=== PATIENT | male | born 1970 | race Caucasian/White ===

== ENCOUNTER 2023-01-17 07:54 | Outpatient (REF) | payer OTHER, SELFPAY ==
[2023-01-17 08:31] LABS: MANUAL DIFF FLAG NO
[2023-01-17 08:54] LABS: Basophils Percent Auto 0.7 % (0-2); Eosinophils Absolute Auto 0.4 X10*3/uL (0.0-0.4); Eosinophils Percent Auto 5.8 % (0-4); Hematocrit 50.6 % (42.0-52.0); Hemoglobin 17.7 g/dl (14.0-18.0); Imm Gran Abs Auto 0.01 X10*3/uL (0.00-0.03); Imm Gran Pct Auto 0.2 % (0.0-0.4); Lymphocytes Absolute Auto 1.9 X10*3/uL (1.2-4.9); Lymphocytes Percent Auto 31.6 % (20-40); Mean Corpuscular Hemoglobin 31.6 pg (27.0-33.0); Mean Corpuscular Volume 90.2 fL (80.0-98.0); Mean Platelet Volume 9.7 fL (9.4-12.4); Monocytes Absolute Auto 0.6 X10*3/uL (0.1-1.2); Monocytes Percent Auto 9.3 % (2-11); Neutrophils Absolute Auto 3.2 x10*3/uL (2.0-8.3); Neutrophils Percent Auto 52.4 % (45-73); Platelet Count 233 X10*3/uL (160-400); Red Blood Count 5.61 X10*6/uL (4.60-5.80); Red Cell Distribution Width 11.8 % (11.0-16.0); White Blood Count 6.1 X10*3/uL (4.8-10.8)
[2023-01-17 09:28] LABS: Alanine Aminotransferase 31 U/L (0-40); Albumin Level 4.6 g/dL (3.5-5.0); Alkaline Phosphatase 61 U/L (39-117); Anion Gap 16 (12-20); Aspartate Amino Transferase 25 U/L (5-37); Bilirubin Total 0.6 mg/dL (0.0-1.0); Blood Urea Nitrogen 12 mg/dL (9-16); Calcium 9.4 mg/dL (8.4-10.2); Carbon Dioxide 24 mmol/L (22-29); Chloride 104 mmol/L (96-108); Cholesterol 210 mg/dL (<200); Estimated Glomerular Filt Rate > 60; Glucose Random 103 mg/dL (60-115); HDL Cholesterol 44 mg/dL (>40); LDL Cholesterol Calculated 117 mg/dL (<100); Potassium 4.1 mmol/L (3.3-5.1); Sodium 140 mmol/L (135-145); Total Protein 7.5 g/dL (6.5-8.0); Triglycerides 245 mg/dL (<150)
[2023-01-17 09:38] LABS: Erythrocyte Sedimentation Rate 1 MM/HR (0-15)
[2023-01-17 09:52] LABS: PSA,Total (Free>4and<10) 0.81 ng/mL (0.00-4.00)
== END 2023-01-17 07:55 | disposition home or self-care (01) ==
LOC: HO.LAB 07:54
PROVIDERS: PCP Internal Medicine Medical Oncology; Visit Provider Internal Medicine Medical Oncology
DX: N40.0 Benign prostatic hyperplasia without lower urinary tract symptoms (principal); E66.3 Overweight; M79.605 Pain in left leg; Z12.5 Encounter for screening for malignant neoplasm of prostate
CPT/HCPCS: 36415; 80053; 80061; 84153; 85025; 85652

== ENCOUNTER 2023-08-05 09:11 | Outpatient (REF) | payer OTHER, SELFPAY ==
[2023-08-05 09:34] LABS: MANUAL DIFF FLAG NO
[2023-08-05 10:53] LABS: Basophils Percent Auto 0.5 % (0-2); Eosinophils Absolute Auto 0.3 X10*3/uL (0.0-0.4); Eosinophils Percent Auto 5.8 % (0-4); Hematocrit 50.3 % (42.0-52.0); Hemoglobin 17.2 g/dl (14.0-18.0); Imm Gran Abs Auto 0.02 X10*3/uL (0.00-0.03); Imm Gran Pct Auto 0.4 % (0.0-0.4); Lymphocytes Absolute Auto 1.9 X10*3/uL (1.2-4.9); Mean Corpuscular HGB Conc 34.2 g/dl (31.0-36.0); Mean Corpuscular Hemoglobin 30.8 pg (27.0-33.0); Mean Corpuscular Volume 90.1 fL (80.0-98.0); Mean Platelet Volume 9.3 fL (9.4-12.4); Monocytes Absolute Auto 0.6 X10*3/uL (0.1-1.2); Neutrophils Absolute Auto 2.8 x10*3/uL (2.0-8.3); Neutrophils Percent Auto 49.3 % (45-73); Platelet Count 223 X10*3/uL (160-400); Red Blood Count 5.58 X10*6/uL (4.60-5.80); Red Cell Distribution Width 11.5 % (11.0-16.0); White Blood Count 5.7 X10*3/uL (4.8-10.8)
[2023-08-05 11:16] LABS: Alanine Aminotransferase 28 U/L (0-40); Albumin Level 4.4 g/dL (3.5-5.0); Alkaline Phosphatase 54 U/L (39-117); Anion Gap 15 (12-20); Aspartate Amino Transferase 22 U/L (5-37); Bilirubin Total 1.1 mg/dL (0.0-1.0); Blood Urea Nitrogen 12 mg/dL (9-16); Calcium 9.8 mg/dL (8.4-10.2); Carbon Dioxide 27 mmol/L (22-29); Chloride 102 mmol/L (96-108); Estimated Glomerular Filt Rate > 60; Glucose Random 101 mg/dL (60-115); Potassium 3.8 mmol/L (3.3-5.1); Sodium 140 mmol/L (135-145); Total Protein 7.2 g/dL (6.5-8.0)
== END 2023-08-05 09:12 | disposition home or self-care (01) ==
LOC: HO.LAB 09:11
PROVIDERS: PCP Internal Medicine Medical Oncology; Visit Provider Internal Medicine Medical Oncology
DX: E66.3 Overweight (principal)
CPT/HCPCS: 36415; 80053; 85025

== ENCOUNTER 2024-12-13 16:45 | Outpatient (REF) | payer OTHER, SELFPAY ==
--- OUTSIDE RECORDS SUMMARY | 2023-11-02 14:00 | XMS_ITS ---
Author Organization Marcin Gillette III, MD Address [address] [place] [address] [place] [address] Care Team Providers Care Software Engineer Web Services Name Role Phone Marcin Gillette Primary Care Provider [phone] Allergies Allergen (clinical drug ingredient) Drug/Non Drug Allergy documented on EMR Reaction Allergy Type Onset Date Status sulfamethoxazole / trimethoprim Bactrim DS harlan shahriar syndrome Drug Allergy Active REASON FOR VISIT Follow up Medications Medication SIG (Take, Route, Frequency, Duration) Notes Start Date End Date Status Terbinafine HCl 1 % 1 application Playground Supervisor ally Once a day 09/30/2023 Active Triamcinolone Acetonide 0.1 % APPLY TOPICALLY TO THE AFFECTED AREA TWICE DAILY Active traZODone HCl 50 MG 1 tablet at bedtime as needed Orally Once a day 05/20/2023 Active Social History Tobacco Use: Social History Observation Description Date Details (start date - stop date) Light tobacco s moker NA - NA Sex Assigned At : Social History Observation Description Sex Assigned At Male Tobacco Use/Smoking Question Answer Notes Patient is a light tobacco smoker Additional Findings: Tobacco User Light cigarett e smoker ((1-9 cigs/day) Encounters Encounter Location Date Provider Diagnosis Marcin Gillette III, MD [address] [place] [address] [place] [address] 11/02/2023 Marcin Gillette Essential hypertensi on I10 Assessments Encounter Date Diagnosis (ICD Code) Assessment Notes Treat ment Notes Treatment Clinical Notes 11/02/2023 Essential hypertension (ICD-10 - I10) His systolic blood pressure was elevated at 150/80. This is llikely due too his ethanol use. He will return to the [facility] in the near future to measure it again. If necessary, will be treated. Plan Of Treatment Medication Medication Name Sig Start Date Stop Date Notes Terbinafine HCl 1 % 1 application Playground Supervisor ally Once a day 09/30/2023 Triamcinolone Acetonide 0.1 % APPLY TOPI MARCY TO THE AFFECTED AREA TWICE DAILY traZODone HCl 50 MG 1 tablet at bedtime as needed Orally Once a day 05/20/2023 Next Appt Details Provider Name:Marcin Gillette, 12/16/2024 01:00:00 PM, [address] [place] [address] [address], [place], [address], Provider Name:Marcin Gillette, 01/09/2025 02:30:00 PM, [address] [place] [address] [address], [place], [address], Progress Notes * Mg KHANDOB:1970 (54 yo M)Acc No.[id number]:11/02/2023 Progress Notes Patient: Mg SUAREZ Provider: Arsenio Gillette MD :1970 A ge:53 Y S ex:Male Date:11/02/2023 Address:[address] [place] [id number] Subjective: * Chief Complaints: * 1 . Follow up. * HPI: C OVID-19 Screening: Questions H ave you had any new onset fever, chills, cough, congestion, sore throat, shortness of breath, muscle aches? N o H ave you been exposed to the virus within the last 10 days? N o H ave you travelled internationally in the last 10 days? N o H ave you been exposed to COVID-19 in the past? N o * ROS: G eneral/Constitutional: pain o nly normal aches and pains. C hills d enies.?Fatigue a dmits. F ever d enies. E NT: Decreased hearing d enies. R espiratory: Cough d enies. C ardiovascular: Chest pain with exertion d enies. D yspnea on exertion?denies. S hortness of breath d enies. G astrointestinal: Constipation d enies. D ecreased appetite d enies.?Diarrhea d enies. H eartburn d enies. N ausea d enies. R ectal bleeding?denies. V omiting d enies. H ematology: bruising d enies. p etechiae d enies. S wollen glands n one have been noted. G enitourinary: Frequent urination d enies. M usculoskeletal: Muscle aches d enies. P ainful joints d enies. S ciatica d enies. W eakness d enies. S kin: Itching d enies. R elinor d enies. S kin lesion(s)?denies. N eurologic: Difficulty speaking d enies. D izziness d enies.?Headache d enies. L ow back pain d enies. P sychiatric: Depressed mood d enies. 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 2013, Overweight, Alcohol use disorder, Tobacco dependence. * Surgical History: a ppendectomy 1983, nasal surgery childhood, tooth extraction , Right hand growth removal 08/2023. * Hospitalization/Major Diagno stic Procedure: E R visit C4-C5 12/12/17. * Family History: F ather: 54 yrs. M other: alive 78 yrs. A maternal uncle at the age of 55 of a myocardial infarction. * Social History: T obacco Use: T obacco Use/Smoking P atmarcelino is a l ight tobacco smoker A dditional Findings: Tobacco User L ight cigarette smoker ((1-9 cigs/day) H e operates a [employer]. He drinks alcohol daily. 2014. His girlfriend was . He smokes cigarettes. * Medications: T aking Triamcinolone Acetonide 0.1 % Cream APPLY TOPICALLY TO THE AFFECTED AREA TWICE DAILY , Taking traZODone HCl 50 MG Tablet 1 tablet at bedtime as needed Orally Once a day , Taking Terbinafine HCl 1 % Cream 1 application Externally Once a day , stop date 04/26/2024, Medication List reviewed and reconciled with the patient * Allergies: B actrim DS: harlan shahriar syndrome. Objective: * Vitals: * Examination: G eneral Examination: GENERAL APPEARANCE: p salome, well nourished, well developed, in no acute distress, calm and relaxed. HEAD: a traumatic, normocephalic. EYES: e bridget, perrla, anicteric, conjugate. EARS: n ormal. NOSE: s eptum intact. ORAL CAVITY: n ormal, unremarkable. NECK/THYROID: n o jugular venous distention, no carotid bruit, thyroid normal. LYMPH NODES: n o enlarged lymph nodes,spleen normal. SKIN: n o suspicious lesions, anicteric. HEART: n o clicks, gallops, murmurs, or rubs, regular rhythm, S1, S2 normal, no s3, or vascular bruits. LUNGS: c lear to auscultation . BREASTS: no masses palpable bilaterally. ABDOMEN: b owel sounds normal, no ascites, no organomegaly, no mass. RECTAL EXAM: n ot examined. MUSCULOSKELETAL: e xtremities unremarkable, no clubbing, cyanosis or edema. PERIPHERAL PULSES: n ormal. NEUROLOGIC: a lert and oriented, cranial nerves 2-12 grossly intact, deep tendon reflexes 2+ symmetrical, motor strength normal upper and lower extremities, sensory exam intact. PSYCH: a lert, oriented. Assessment: * Assessment: 1. E ssential hypertension - I10 N otes :His systolic blood pressure was elevated at 150/80. This is llikely due too his ethanol use. He will return to the offic in the near future to measure it again. If necessary, will be treated. Plan: * Treatment: 2. O thers Continue Triamcinolone Acetonide Cream, 0.1 %, APPLY TOPICALLY TO THE AFFECTED AREA TWICE DAILY;?Continue traZODone HCl Tablet, 50 MG, 1 tablet at bedtime as needed, Orally, Once a day. ? * Images: * The named appointment provid er may or may not be the originator of this progress note, and it is not deemed complete until electronically signed by the appointment provider. Sign off status: Pending * Provider: Arsenio Gillette MD Date: 0 11/02/2023 Generated for Printi ng/Faaraselig/eTransmitting on: 0 12/13/2024 05:50 PM EDT History and Physical Notes * HPI (History of Present Illness) Category Sub-Category Detail Notes COVID-19 Screening Questions Have you had any new onset fever, chills, cough, congestion, sore throat, shortness of breath, muscle aches?: No Have you been exposed to the virus withi n the last 10 days?: No Have you travelled internationally in [facility] last 10 days?: No Have you been exposed to COVID-19 in the past?: No Examination Category Sub-Category Detail Notes General Examination GENERAL APPEARANCE: pleasant , well nourished, well developed, in no acute distress, calm and relaxed HEAD: atraumatic, normocep halic EYES: eomi, perrla, anicte kenzie, conjugate EARS: normal NOSE: septum intact NECK/THYROID: no jugular venous di stention, no carotid bruit, thyroid normal HEART: no clicks, gallops, murmurs, or rubs, regular rhythm, S1, S2 normal, no s3, or vascular bruits LUNGS: clear to auscultatio n ABDOMEN: bowel sounds normal, no ascites, no organomegaly, no mass NEUROLOGIC: alert and oriented, cranial nerves 2-12 grossly intact, deep tendon reflexes 2+ symmetrical, motor strength normal upper and lower extremities, sensory exam intact SKIN: no suspicious lesion s, anicteric PERIPHERAL PULSES: normal BREASTS: no masses palpable b ilaterally MUSCULOSKELETAL: extremities unremark able, no clubbing, cyanosis or edema LYMPH NODES: no enlarged lymph no luba,spleen normal RECTAL EXAM: not examined PSYCH: alert, oriented ORAL CAVITY: normal, unremarkable
[2024-12-13 17:01] LABS: Appearance Urine Clear; Glucose Urine UA Negative (Negative); PH 6.5 (5.0-9.0); Specific Gravity - Urine 1.025 (1.005-1.025)
--- OUTSIDE RECORDS SUMMARY | 2024-12-13 17:50 | XMS_ITS | Clinical Summary ---
Author Organization [facility] it Address [address] [place] [address] Care Team Providers Care Rubber Tile Floor Layer Name Role Phone Unavailable Primary Care Provider Unavailabl e Social History Tobacco Use Types Packs/Day Years Used Date Smoking Tobacco: Never Assessed Sex and Gender Information Value Date Recorded Sex Assigned at Not on file Legal Sex Male 10:00 AM EST Gender Identity Not on file Sexual Orientation Not on file Plan of Treatment Health Maintenance Due Date Last Done Comments DTaP,Tdap,and Td Vaccines (1 - Tdap) 09/20/1991 Hepatitis B Vaccines (1 of 3 - 19+ 3-dose series) 09/20/1991 Pneumococcal Vaccine: 50+ Ye ars (1 of 1 - PCV) 2022 Zoster Vaccines (1 of 2) 2022 Cholesterol Screening (Lipid Panel) 12/21/2023 Colorectal Cancer Screening: Colonoscopy 12/21/2023 HIV Screening 12/21/2023 Hepatitis C Screening 12/21/2023 Social Influencers of Health Screening 12/21/2023 COVID-19 Vaccine (1 - 2023-2 5 season) 2023 Depression Screening 04/27/2024 Influenza Vaccine (#1) 2024 HIB Vaccines Aged Out No longer eligi ble based on patient's age to complete this topic HPV Vaccines Aged Out No longer eligi ble based on patient's age to complete this topic Hepatitis A Vaccines Aged Out No long er eligible based on patient's age to complete this topic IPV Vaccines Aged Out No longer eligi ble based on patient's age to complete this topic MMR Vaccines Aged Out No longer eligi ble based on patient's age to complete this topic Meningococcal ACWY Vaccine Aged Out N o longer eligible based on patient's age to complete this topic Meningococcal B Vaccine Aged Out No l onger eligible based on patient's age to complete this topic RSV Immunization Patients Un nolberto 20 months Aged Out No longer eligible b ased on patient's age to complete this topic Varicella Vaccines Aged Out No longer eligible based on patient's age to complete this topic
--- OUTSIDE RECORDS SUMMARY | 2024-12-13 17:50 | XMS_ITS | Patient Health Record ---
Author Organization [facility] Address [address] [place] [address] Care Team Providers Care Facing Cutting Machine Operator Name Role Phone Marcin Gillette MD Primary Care Provider Unavailab Marcin Baig Unavailable [phone] Allergies Allergen (clinical drug ingredient) Drug/Non Drug Allergy documented on EMR Reaction Allergy Type Onset Date Status sulfamethoxazole / trimethoprim Bactrim DS Unknown Drug Allergy Active Reason For Referral No Information Medications Medication SIG (Take, Route, Fr equency, Duration) Notes Start Date End Date Status Gilman 3 1000 MG 1 capsule Orally Once a day Active Immunizations Vaccine Route Administration Date Status Comme nts Influenza Unknown 07/27/2018 Refused Social History Tobacco Use: Social History Observation Description Date Details (start date - stop date) Never Smoker NA - NA Tobacco Use/Smoking Question Answer Notes Patient is a nonsmoker Alcohol Screen Question Answer Notes Did you have a drink contain ing alcohol in the past year? Yes How often did you have a dri nk containing alcohol in the past year? 4 or more times a week (4 points) How many drinks did you have on a typical day when you were drinking in the past year? 1 or 2 drinks (0 point) How often did you have 6 or more drinks on one occasion in the past year? Less than monthly (1 point) Points 5 Interpretation Positive Section Notes: Smoker; substance abuse and EtOH as above Smoker; Alcohol abuse-2-3 N ips and a couple of beers daily; substance abuse-absinent since 2012 Problems Problem Type SNOMED Code ICD Code Onset Dates Problem Status W/U Status Risk Notes Problem [id number] Rectal discomfort (K62.89) Active confirmed Plan Of Treatment Pending Test Test Name Order Date LIVER PROFILE 02/21/2014 CBC w DIFF 02/21/2014 PROTHROMBIN TIME (PT, INR) 02/21/2014 HEPATITIS C VIRAL LOAD 02/21/2014 HEPATITIS C GENOTYPE 02/21/2014 Future Test Test Name Order Date COLONOSCOPY 07/27/2018 Insurance Providers Payer Name Payer Address Payer Phone Subscriber Number Group Number Insured Name Patient Relationship to Insured Coverage Start Date Coverage End Date [facility] [address] [place], [place] [id number] HAWA KHAN Self - patient is the insured Medical (General) History Medical History History ICD Code Denies [place],DM,CVA,Lung disease,renal dise ase Chronic Hep C diagnosed in 2 012 at [facility]--IV heroin-abstinent since 05/2013--Hepatitis C viral load was nondetectable in 2013 EtOH abuse --stopped in his 30's Surgical History Surgery Date(Month/Year) Broken nose 1983 Adenoidectomy
--- OUTSIDE RECORDS SUMMARY | 2024-12-13 17:50 | XMS_ITS | Clinical Summary ---
Demographics Address [address] [place] [address] Mobile Phone Home Phone Preferred Language Maltese Marital Status Unknown Hindu Affiliation Unknown Race Unknown Ethnic Group Unknown Author Organization [facility] Address [address] [place] [address] Care Team Providers Care Joggle Press Operator Name Role Phone Unavailable Primary Care Provider Unavailabl e Allergies Active Allergy Reactions Criticality Noted Date Comments Sulfamethoxazole W-Trimethoprim Urticarial Rash 07/30/2015 Medications * This document contains information received from the source organization and may not represent a complete record from that organization. No known medications Active Problems No known active problems Social History Tobacco Use Types Packs/Day Years Used Date Smoking Tobacco: Never Alcohol Use Standard Drinks/Week Comments Not Asked 0 (1 standard drink = 0.6 oz pur e alcohol) Sex and Gender Information Value Date Recorded Sex Assigned at Not on file Legal Sex Male 2:55 PM EDT Gender Identity Not on file Sexual Orientation Not on file Last Filed Vital Signs Vital Sign Reading Time Taken Comments Blood Pressure 130/90 07/30/2015 11:04 AM EDT Pulse 74 07/30/2015 11:04 AM EDT Temperature - - Respiratory Rate - - Oxygen Saturation - - Inhaled Oxygen Concentration - - Weight 90.7 kg (200 lb) 07/30/2015 11:04 AM EDT Height 180.3 cm (5' 11 ) 07/30/2015 11:04 AM EDT Body Mass Index 27.89 07/30/2015 11:04 AM EDT Plan of Treatment Health Maintenance Due Date Last Done Comments Hepatitis C Screening 1970 DTaP/Tdap/Td (1 - Tdap) 1990 Hep B (1 of 3 - 19+ 3-dose series) 09/20/1991 Pneumococcal 50+ years (1 of 1 - PCV) 2022 Zoster (Shingrix) (1 of 2) 2022 COVID-19 Vaccine ( - 2023-2 5 season) 2023 Influenza (#1) 2024 HPV Vaccine (No Doses Required) Completed Hep A Aged Out No longer eligi ble based on patient's age to complete this topic Hib Aged Out No longer eligi ble based on patient's age to complete this topic Meningococcal ACWY Aged Out No longer eligible based on patient's age to complete this topic
== END 2024-12-13 16:46 | disposition home or self-care (01) ==
LOC: HO.LNP 16:45
PROVIDERS: Visit Provider Internal Medicine Medical Oncology
DX: R39.9 Unspecified symptoms and signs involving the genitourinary system (principal)
CPT/HCPCS: 81003

== ENCOUNTER 2024-12-16 13:41 | Emergency (ER) | payer OTHER, SELFPAY ==
--- NOTE | ~2024-12-16 | US_ITS ---
EXAMINATION: US TRIPLEX LOWER EXTREMITY, RIGHT CLINICAL INFORMATION: Right lower extremity pain COMPARISON: None available. TECHNIQUE: Color-flow triplex imaging with spectral analysis and compression Doppler were performed on the right lower extremity. FINDINGS: Respiratory variation, normal compression and augmented flow are noted throughout the right lower extremity. The visualized common femoral vein, superficial femoral vein, profunda femoral vein, popliteal vein and midcalf peroneal and posterior tibial venous segments show no evidence of deep venous thrombosis. There is a lobulated fluid collection in the proximal lateral calf region measuring 4.4 x 3.6 x 4.6 cm deep to the calf muscles US/US venous duplex LE RT IMPRESSION: No evidence of deep venous thrombosis involving the right lower extremity. Calf fluid collection could represent seroma, hematoma, or fluid from a leaking Fortune's cyst. Electronically signed by: Yandel Peralta MD 12/16/2024 04:26 PM EDT
--- OUTSIDE RECORDS SUMMARY | 2024-12-16 05:20 | XMS_ITS ---
Author Organization Marcin Gillette III, MD Address [address] [place] [address] [place] [address] Care Team Providers Care Account Classification Clerk Name Role Phone Marcin Gillette Primary Care Provider [phone] REASON FOR VISIT Rx Request Social History Sex Assigned At : Social History Observation Description Sex Assigned At Male Encounters Encounter Location Date Provider Diagnosis Marcin Gillette III, MD [address] [place] [address] [place] [phone] 12/16/2024 Marcin Gillette Plan Of Treatment Next Appt Details Provider Name:Marcin Gillette, 12/19/2024 01:00:00 PM, [address] [place] [address] [place], [address], Provider Name:Marcin Gillette, 01/09/2025 02:30:00 PM, [address] [place] [address] [place], [address], Progress Notes * Mg RIOSDOB:1970 (54 yo M)Acc No.[id number]:12/16/2024 Patient: Mg SUAREZ :1970 A ge:54 Y S ex:Male Address:[address] [place] [address], [address] , [place], [address] * * Date:
[2024-12-16 13:56] VITALS: BP 163/90; PULSE 102; RESP 16; TEMP 36.4; O2SAT 98; BMI 30.5
--- NOTE | 2024-12-16 14:02 | ED_ITS ---
HPI - General Adult General Chief complaint: Extremity Injury, Lower Stated complaint: R Leg Hematoma Time Seen by Provider: 12/16/24 16:15 Source: patient Mode of arrival: ambulatory Limitations: no limitations History of Present Illness ED Provider: HPI narrative: 55-year-old male injured at work 9 days ago, presenting with hematoma over his right lower extremity but he also has injury to his left calf as well, apparently his PCP sent him here for further evaluation. Patient states he has been using anti-inflammatories elevation ice and using crutches at home. Related Data Allergies Allergy/AdvReac Type Severity Reaction Status Date / Time sulfamethoxazole (From Allergy Severe UNKNOWN Verified 12/16/24 13:59 BACTRIM) trimethoprim (From BACTRIM) Allergy Severe UNKNOWN Verified 12/16/24 13:59 Review of Systems Constitutional: Constitutional: Reports as per HPI Physical Exam ED Vital Signs: Vital Signs - 24 hr 12/16/24 13:56 Temperature 97.6 F Pulse Rate 102 H Respiratory Rate 16 Blood Pressure 163/90 H Pulse Oximetry 98 Oxygen Delivery Method Room Air BMI result Body Mass Index 30.5 Const Other: On physical examination otherwise well-appearing patient alert and oriented x4, he is ambulatory with crutch assistance Evaluation of his lower extremities reveals stable pelvis full range of motion of the hips, knees, he has bruising along his right calf down to the ankle appropriate to the injury reported, distal pulses intact bilateral lower extremities, he also has mid calf hematoma on the left calf Achilles tendons intact bilaterally, compartments are soft Course Course Course Narrative: RME, this is a rapid medical exam performed by Jacob Manuel please refer to primary provider for complete H&P- 54-year-old male presents for evaluation of right calf pain and swelling. He had an injury on 12/07/2024 he accidentally walked backwarins into the lift gate. The patient has bruising to both calves but has significant bruising to the right calf with difficulty walking. He saw his primary doctor on the and again today who feels his symptoms are worsening and he is concerned for DVT versus compartment syndrome. On exam, the patient is able to flex and extend the right foot and toes without difficulty. The actual compartment is soft but does have an area of firmness over the hematoma. Plan for ultrasound Medical Decision Making Medical Decision Making [facility] Narrative: Patient is presenting with bilateral muscle contusion to the calves bilateral worse on the right side, ultrasound without any evidence for DVT there is a small hematoma collection, see my discharge instructions regarding management and follow up Differential Diagnosis Differential Diagnoses: The differential diagnosis associated with the presentation includes (DVT, muscle contusion, Achilles rupture, knee injury, compartment syndrome, cellulitis) Radiology Impression Discussion of test interpretation with radiology: I have reviewed the radiologist's reading. (TECHNIQUE: Color-flow triplex imaging with spectral analysis and compression Doppler were performed on the right lower extremity. FINDINGS: Respiratory variation, normal compression and augmented flow are noted throughout the right lower extremity. The visualized common femoral vein, superficia) Tests considered The following testing was considered but not selected: X-rays Prescription Management I considered prescription management with: Pain Medication Discharge Plan Discharge Clinical Impression: Hematoma of right lower extremity Patient Disposition: Home, Self-Care Instructions: Contusion in Adults (ED) Additional Instructions: Wheeze follow up with your primary care provider after ED visit, I have recommend starting physical therapy, if you are not taking ibuprofen I recommend capsaicin ointment which is good for muscle injuries, nerve type of pain, you can also use diclofenac ointment which is an anti-inflammatory cream they you can apply to the area 3 to 4 times a day, calf stretching exercises, considering wearing boots with ankle support so you do not re-injury your extremity, consider inserting heel lift all ambulating and weaning of crutches. Ultrasound without DVT, there is hematoma as expected. TECHNIQUE: Color-flow triplex imaging with spectral analysis and compression Doppler were performed on the right lower extremity. FINDINGS: Respiratory variation, normal compression and augmented flow are noted throughout the right lower extremity. The visualized common femoral vein, superficial femoral vein, profunda femoral vein, popliteal vein and midcalf peroneal and posterior tibial venous segments show no evidence of deep venous thrombosis. There is a lobulated fluid collection in the proximal lateral calf region measuring 4.4 x 3.6 x 4.6 cm deep to the calf muscles US/US venous duplex LE RT IMPRESSION: No evidence of deep venous thrombosis involving the right lower extremity. Calf fluid collection could represent seroma, hematoma, or fluid from a leaking Fortune's cyst. Referrals: Marcin Gillette MD [Primary Care Provider, Internal Medicine] - 1 week Clinical Impression: Hematoma of right lower extremity Print Language: Luxembourgish
--- OUTSIDE RECORDS SUMMARY | 2024-12-16 16:33 | XMS_ITS | Clinical Summary ---
Demographics Address [address] [place] [address] Mobile Phone Home Phone Preferred Language Turkish Marital Status Unknown Latter-Day Affiliation Unknown Race Unknown Ethnic Group Unknown Author Organization [facility] Address [address] [place] [address] Care Team Providers Care Connection Worker Name Role Phone Unavailable Primary Care Provider [...]
--- OUTSIDE RECORDS SUMMARY | 2024-12-16 16:33 | XMS_ITS | Clinical Summary ---
Author Organization [facility] it Address [address] [place] [address] Care Team Providers Care Industrial Electrical Technician Name Role Phone Unavailable Primary Care Provider [...]
--- OUTSIDE RECORDS SUMMARY | 2024-12-16 16:33 | XMS_ITS | Patient Health Record ---
Author Organization [facility] Address [address] [place] [address] Care Team Providers Care Adaptive Physical Education Teacher Name Role Phone Marcin Gillette MD Primary Care Provider Unavailab Marcin Baig Unavailable [phone] Allergies Allergen (clinical drug ingredient) Drug/Non Drug Allergy documented on EMR Reaction Allergy Type Onset Date Status sulfamethoxazole / trimethoprim Bactrim DS Unknown Drug Allergy Active Reason For Referral No Information Medications Medication SIG (Take, Route, Fr equency, Duration) Notes Start Date End Date Status Rittman 3 1000 MG 1 capsule Orally Once [...] Problem Status W/U Status Risk Notes Problem [id number] Rectal discomfort (K62.89) Active confirmed Plan Of [...] Insured Coverage Start Date Coverage End Date [facility] [address] [place], [place] [id number] [phone] [id number] HAWA KHAN Self - patient is the insured Medical (General) History Medical History History ICD Code Denies [place],DM,CVA,Lung disease,renal dise ase Chronic Hep C diagnosed in 2 012 at [facility]--IV heroin-abstinent since 05/2013--Hepatitis C viral load was nondetectable in 2013 EtOH abuse --stopped in his 30's Surgical History Surgery Date(Month/Year) Broken nose 1983 Adenoidectomy
[2024-12-16 16:47] VITALS: BP 168/91; PULSE 81; RESP 18; O2SAT 98
[2024-12-16 17:00] VITALS: BP 168/91; PULSE 81; RESP 18; TEMP 36.4; O2SAT 98
== END 2024-12-16 17:01 | disposition home or self-care (01) ==
PROVIDERS: Emergency Provider Emergency Medicine; PCP Internal Medicine Medical Oncology
DX: M79.604 Pain in right leg (principal); R60.0 Localized edema; S80.11XA Contusion of right lower leg, initial encounter; X58.XXXA Exposure to other specified factors, initial encounter; Y93.01 Activity, walking, marching and hiking; Y92.9 Unspecified place or not applicable; Y99.9 Unspecified external cause status
CPT/HCPCS: 93971; 99283; 99284

== ENCOUNTER → 2024-12-16 14:02 | Outpatient (BNV) | payer OTHER, SELFPAY | PROVIDERS: Emergency Provider Emergency Medicine; PCP Internal Medicine Medical Oncology; Visit Provider Radiology Diagnostic Radiology | DX: R22.42 Localized swelling, mass and lump, left lower limb (principal) | CPT/HCPCS: 93971 ==